=== PATIENT | male | born 1955 | race Caucasian/White ===

== ENCOUNTER → 2020-02-16 10:00 | Outpatient (BNVA) | payer BC, SELFPAY | PROVIDERS: Family Provider Nurse Practitioner Family; PCP Nurse Practitioner Family; Visit Provider Nurse Practitioner Family | DX: Z03.818 Encounter for observation for suspected exposure to other biological agents ruled out (principal); Z11.59 Encounter for screening for other viral diseases; Z20.828 Contact with and (suspected) exposure to other viral communicable diseases | CPT/HCPCS: 87635 ==

== ENCOUNTER → 2020-02-23 11:06 | Outpatient (BNVA) | payer BC, SELFPAY | PROVIDERS: Family Provider Nurse Practitioner Family; PCP Nurse Practitioner Family; Visit Provider Nurse Practitioner Family | DX: E78.5 Hyperlipidemia, unspecified (principal); I10 Essential (primary) hypertension; E78.00 Pure hypercholesterolemia, unspecified; K21.9 Gastro-esophageal reflux disease without esophagitis; R60.0 Localized edema; Z76.0 Encounter for issue of repeat prescription | CPT/HCPCS: 80053; 80061 ==

== ENCOUNTER 2020-02-26 14:23 | Emergency (ER) | payer BC, SELFPAY ==
[2020-02-26 14:34] VITALS: BP 123/86; PULSE 78; RESP 18; TEMP 36.9; O2SAT 98; BMI 39.9
--- NOTE | 2020-02-26 14:42 | ECG_ITS ---
Measurements Intervals [place] Rate: 79 P: 45 W[place]: 156 QRS: -26 QRSD: 98 T: 0 QT: 380 QTc: 437 SINUS RHYTHM BORDERLINE LEFT AXIS DEVIATION [QRS AXIS < -20] MINIMAL VOLTAGE CRITERIA FOR LVH, CONSIDER NORMAL VARIANT [MEETS CRITERIA IN ONE OF: R(aVL), S(V1), R(V5), R(V5/V6)+S(V1)] No previous ECG available for comparison Electronically Signed On 02-27-2020 14:58:03 CDT by Jose Pearson M.D. [email or web address]
--- NOTE | 2020-02-26 14:49 | CT_ITS ---
WS: [id number] CT HEAD NONCONTRAST HISTORY: Headache and dizziness TECHNIQUE: Contiguous axial imaging performed through the brain in 2.5 mm imaging. Bone and soft tiss ue windows. Sagittal and coronal reformats reviewed. All CT scans at [facility] use at ast one of these dose optimization techniques: automated exposure control; mA and/or kV adjustment pe r patient size (includes targeted exams where dose is matched to clinical indication); or iterative r econstruction. DLP: 776.12 mGy.cm COMPARISON: None available. No acute intracranial hemorrhage, midline shift or mass effect. No atrophy or prior infarcts or herniation. Ventricles: Normal size with no hydrocephalus. No inferior displacement of cerebellar tonsils. Clivus and pituitary gland are normal. Paranasal sinuses: As visualized are clear. Mastoid air cells: Well pneumatized. Calvarium and scalp: Skull is intact with no soft tissue edema or swelling. CT/CT head wo con* [id number] IMPRESSION: Negative head CT.
--- NOTE | 2020-02-26 15:00 | ED_ITS ---
HPI - Dizziness General: Chief Complaint: Dizziness Stated Complaint: dizzy Time Seen by Provider: 02/26/20 14:42 Source: patient Mode of arrival: ambulatory Limitations: no limitations History of Present Illness: HPI Narrative: Patient comes in today for complaints of dizziness. Patient states that he became dizzy when he was just setting in his chair at home. Patient reports that the dizziness is exacerbated with movement of his head. Patient reports that he had a headache earlier today but with Excedrin the headache is gone. Patient appears well. Patient appears in no pain. MD elicited complaint: vertigo Review of Systems General: Reports: 10 or more systems reviewed and unremarkable except in HPI and below Neuro: Reports: dizziness PFSH ED PFSH: Medical History (Updated 02/26/20 @ 16:43 by EMILY Torre) Hyperlipidemia Social History Smoking and tobacco status: never smoked Physical Exam Const: COMMON NORMALS: no acute distress and patient oriented x3 GENERAL APPEARANCE: cooperative HENMT: COMMON NORMALS: normocephalic, TM's normal bilaterally and Normal external nose present HEAD & SCALP: normal to inspection and normocephalic NOSE: Normal external nose present TYMPANIC MEMBRANE: TM's normal bilaterally MOUTH: Normal oral and palatal mucosa present THROAT: posterior oropharynx normal Eye: GENERAL EYE: appearance normal, both eyes and all related structures Neck/C-Spine: COMMON NORMALS: full ROM Lymph: LYMPHATIC: no lymphadenopathy noted Chest: COMMONS NORMALS: normal inspection of the chest Resp: COMMON NORMALS: normal respiratory effort EFFORT & INSPECTION: Yes able to speak in complete sentences Cardio: COMMON NORMALS: regular rate and regular rhythm RATE: regular rate RHYTHM: regular rhythm GI: COMMON NORMALS: non-tender Back/Pelvis: COMMON NORMALS: thoracic and lumbar spine normal to inspection Extremity: COMMON NORMALS: normal to inspection Neuro: COMMON NORMALS: patient oriented x3 and moves all extremities Psych: COMMON NORMALS: mental status grossly normal and cooperative Skin: COMMON NORMALS: no rashes or lesions noted GENERAL SKIN EXAM: no rashes or lesions noted Course Vital Signs: Vital signs: Vital Signs Temperature 98.5 F 02/26/20 14:34 Pulse Rate 84 02/26/20 17:02 Respiratory Rate 18 02/26/20 17:02 Blood Pressure 162/72 02/26/20 17:02 Pulse Oximetry 98 02/26/20 17:02 MDM - Dizziness MDM Narrative: Medical decision making narrative: Patient comes in today for complaints of dizziness with head movement. Patient appears well. Patient has no focal neural deficits. Respirations are even lungs are clear to auscultat ion. Bilateral tympanic membranes are intact. Vital signs are normal. Differential diagnosis includes brain mass or tumor, CVA, benign positional vertigo, vestibular neuronitis. Laboratory values were insignificant. EKG was sinus rhythm without any ectopy. Urinalysis was clean. CT scan of the head was normal. Reviewed exam with patient with recommendations for treatment and follow-up. Patient reported understanding agreed to plan or need to return to the ER for worsening symptoms. Lab Data: Labs: Lab Results 02/26/20 02/26/20 02/26/20 Range/Units 15:00 15:00 16:06 WBC 7.5 (4.0-10.0) 10^3/ uL RBC 4.53 (4.1-5.3) 10^6/u L Hgb 14.4 (11.7-16.6) g/dL Hct 42.2 (42.0-52.0) % MCV 93.2 (80-94) fL MCH 31.8 (28.0-34.0) pg MCHC 34.1 (30.0-36.0) g/dL RDW 13.0 (12.1-15.1) % Plt Count 240 (130-400) 10^3/c mm MPV 9.1 (7.4-10.4) fL Neut % (Auto) 57.5 % Lymph % (Auto) 31.9 % [place] % (Auto) 8.4 % Eos % (Auto) 1.3 % Baso % (Auto) 0.5 % Neut # (Auto) 4.3 (1.8-7.7) 10^3/u L Lymph # (Auto) 2.4 (0.8-4.8) 10^3/u L [place] # (Auto) 0.6 (0.2-0.9) 10^3/u L Eos # (Auto) 0.1 (0.0-0.8) 10^3/u L Baso # (Auto) 0.0 (0.0-0.1) 10^3/u L Nucleated RBC % (a uto) 0 % Nucleated RBCs # 0.0 /100WBC Sodium 138 (136-145) mmol/L Potassium 3.8 (3.5-5.1) mmol/L Chloride 103 (98-107) mmol/L Carbon Dioxide 25 (22-29) mmol/L Anion Gap 13.8 (5-19) BUN 18 (8-23) mg/dL Creatinine 0.6 L (0.7-1.2) mg/dL GFR Calculation 136.5 H (90-130) mL/min Glucose 100 (65-115) mg/dL Calculated Osmolal ity 283 L (285-295) mOsm/k g Calcium 9.0 (8.5-10.5) mg/dL Urine Color Yellow (Yellow) Urine Appearance Clear (CLEAR) Urine pH 6.5 (5-7) Ur Specific Gravit y 1.015 (1.005-1.030) Urine Protein Neg (Negative) Urine Glucose (UA) Norm (Normal) Urine Ketones Negative (Negative) Urine Blood Neg (Negative) Urine Nitrate Negative (Negative) Urine Bilirubin Neg (NEGATIVE) Urine Urobilinogen Neg (Negative) mg/dL Ur Leukocyte Gayathri ase Negative (Negative) EKG Data^: EKG 1: Attestation: I personally reviewed and interpreted this EKG as follows: (1530, sinus rhythm with a rate of 79 bpm and regular. Artifact is present. No obvious ST elevation. No ectopy is noted.) Discharge Plan Discharge Patient Disposition: Home, Self-Care Clinical Impression: Acute vestibular neuronitis Qualifiers: Laterality: unspecified laterality Qualified Code(s): H81.20 - Vestibular neuronitis, unspecified ear Condition: Stable Prescriptions: New meclizine 25 mg tablet 25 mg PO TID PRN (Reason: dizziness) Qty: 14 RF: 0 No Action furosemide [Lasix] 40 mg tablet 40 mg PO DAILY Qty: 90 RF: 1 lisinopril 20 mg tablet 20 mg PO DAILY Qty: 90 RF: 1 meloxicam 7.5 mg tablet 7.5 mg PO BID Qty: 180 RF: 1 omeprazole 20 mg capsule,delayed release(DR/EC) 20 mg PO DAILY Qty: 90 RF: 1 potassium chloride 10 mEq capsule, extended release 10 meq PO DAILY Qty: 90 RF: 1 Multiple Vitamins Tablet 1 tab PO DAILY RF: 0 aspirin 325 mg Tablet 325 mg PO PRN RF: 0 Glucosamine 500 mg Tablet 500 mg PO BID RF: 0 Excedrin Migraine 250-250-65 mg Tablet 2 tab PO PRN RF: 0 Fish Oil 1 cap PO DAILY RF: 0 atorvastatin 20 mg tablet 20 mg PO DAILY RF: 0 Referrals: Bigg Celeste FNP [Primary Care Provider] - Discharge Diet: Usual diet Discharge Activity: Increase activity as tolerated Patient Instructions: Vertigo (ED) Activity Restrictions/Additional Instructions: Drink plenty of fluids. Continue routine medications as directed. Change positions slowly. Increase activity as tolerated. Use medication as directed. Return to the ER for worsening headache, persistent nausea and vomiting, or chest pain. Follow-up with primary care in 1 week. Discharge Date/Time: 02/26/20 17:08 Coding Level of Care Code ED Mixed Animal Veterinarian for Renetta Fwd Exam Comprehensive
[2020-02-26 15:06] LABS: Basophils % 0.5 %; Eosinophils # 0.1 10^3/uL (0.0-0.8); Eosinophils % 1.3 %; Hematocrit 42.2 % (42.0-52.0); Hemoglobin 14.4 g/dL (11.7-16.6); Lymphocytes # 2.4 10^3/uL (0.8-4.8); Lymphocytes % 31.9 %; Mean Corpuscular HGB Conc 34.1 g/dL (30.0-36.0); Mean Corpuscular Hemoglobin 31.8 pg (28.0-34.0); Mean Corpuscular Volume 93.2 fL (80-94); Mean Platelet Volume 9.1 fL (7.4-10.4); Monocytes # 0.6 10^3/uL (0.2-0.9); Monocytes % 8.4 %; Neutrophils # 4.3 10^3/uL (1.8-7.7); Neutrophils % 57.5 %; Nucleated Red Blood Cells % 0 %; Platelet Count 240 10^3/cmm (130-400); Red Blood Count 4.53 10^6/uL (4.1-5.3); White Blood Count 7.5 10^3/uL (4.0-10.0)
[2020-02-26 15:23] LABS: Anion Gap 13.8 (5-19); Blood Urea Nitrogen 18 mg/dL (8-23); Carbon Dioxide 25 mmol/L (22-29); Chloride 103 mmol/L (98-107); Glomerular Filtration Rate 136.5 mL/min (90-130); Glucose 100 mg/dL (65-115); Osmolality Calculated 283 mOsm/kg (285-295); Potassium 3.8 mmol/L (3.5-5.1); Sodium 138 mmol/L (136-145)
[2020-02-26] MEDS: meclizine 25 mg tablet PO (15:53)
[2020-02-26 16:04] VITALS: BP 119/80; BP 121/78; BP 128/81; PULSE 73; PULSE 74; PULSE 82
[2020-02-26 16:32] LABS: Add Urine Microscopic? NO
[2020-02-26 16:37] LABS: Bilirubin Urine Neg (NEGATIVE); Blood Urine Neg (Negative); Glucose Urine UA Norm (Normal); Ketones Urine Negative (Negative); Leukocyte Esterase Urine Negative (Negative); Nitrate Urine Negative (Negative); Protein Urine Neg (Negative); Specific Gravity, Urine 1.015 (1.005-1.030); Urine Appearance Clear (CLEAR); Urine Color Yellow (Yellow); Urobilinogen Urine Neg (Negative); pH Urine 6.5 (5-7)
[2020-02-26 17:02] VITALS: BP 162/72; PULSE 84; RESP 18; O2SAT 98
== END 2020-02-26 17:08 | disposition home or self-care (01) ==
PROVIDERS: Emergency Provider Nurse Practitioner Family; PCP Registered Nurse
DX: H81.20 Vestibular neuronitis, unspecified ear (principal); E78.5 Hyperlipidemia, unspecified
CPT/HCPCS: 12345; 36415; 70450; 80048; 81003; 85025; 93005; 99283; J8597

== ENCOUNTER → 2020-03-15 10:36 | Outpatient (BNVA) | payer BC, SELFPAY | PROVIDERS: PCP Registered Nurse; Visit Provider Specialist | DX: H83.09 Labyrinthitis, unspecified ear (principal) | CPT/HCPCS: 80053; 85007; 85027; 85651 ==

== ENCOUNTER 2020-06-08 13:18 | Outpatient (RCR) | payer BC, SELFPAY | END 2020-06-15 23:59 | disposition home or self-care (01) | LOC: SPT 13:18 | PROVIDERS: PCP Registered Nurse; Referring Provider Otolaryngology; Visit Provider Otolaryngology | DX: H81.10 Benign paroxysmal vertigo, unspecified ear (principal) | CPT/HCPCS: 95992; 97162 ==

== ENCOUNTER → 2020-07-07 10:58 | Outpatient (BNVA) | payer BC, SELFPAY | PROVIDERS: PCP Registered Nurse; Visit Provider Nurse Practitioner Family | DX: Z20.828 Contact with and (suspected) exposure to other viral communicable diseases (principal); R68.89 Other general symptoms and signs | CPT/HCPCS: 87400; 87635 ==

== ENCOUNTER → 2020-12-01 11:26 | Outpatient (BNVA) | payer BC, SELFPAY | PROVIDERS: PCP Registered Nurse; Visit Provider Nurse Practitioner Family | DX: M25.50 Pain in unspecified joint (principal); R63.5 Abnormal weight gain; R53.83 Other fatigue; Z51.81 Encounter for therapeutic drug level monitoring; E78.5 Hyperlipidemia, unspecified; I10 Essential (primary) hypertension; K21.9 Gastro-esophageal reflux disease without esophagitis; R60.9 Edema, unspecified; R60.0 Localized edema | CPT/HCPCS: 80053; 80061; 84443; 85025; 86038; 86140; 86431 ==

== ENCOUNTER 2021-03-07 08:10 | Outpatient (CLI) | payer BC, SELFPAY ==
[2021-03-07 08:15] VITALS: BMI 45.8
--- NOTE | 2021-03-07 08:16 | NMCV_ITS ---
NM mable perf SPECT r/s* [id number] Jung Malin Age: 65 Gender: M : 1955 Exam Date: 03/07/2021 08:16 Ordering Phys: Eugene Roach M.D ([email or web address]) Technologist: VALERIY Quevedo Exam Location: [facility] Indications: CHEST PAIN STRESS TEST Please see separate stress test [facility] for full findings IMAGE PROTOCOL Rest/Stress 1 Lexiscan Day Radiopharmaceutical Dose (mCi) Administration Site Administered by Rest: Tc-99m 10.9 IV VALERIY Quevedo Sestamibi Stress:Tc-99m 33.0 IV VALERIY Krause Sestamibi Rest: 07-Mar-2021 60 Discovery 630 Stress: 07-Mar-2021 30 Discovery 630 0.4mg Lexiscan. Images obtained in supine and prone position. SPECT RESULTS Technical Quality: Good Raw Data Analysis: Soft tissue attenuation Image Corrections: No attenuation or motion correction applied Summed Stress Score: 0 Summed Rest Score: 1 Summed Difference Score: 0 PERFUSION FINDINGS Homogenous radiotracer uptake throughout the myocardium.No evidence of ischemia is noted FUNCTIONAL RESULTS (calculated via Gated SPECT) Stress Image LV EF (%): 69 Stress EDV (mL):105 TID: 0.86 Stress ESV (mL):33 FUNCTIONAL FINDINGS: There is normal left ventricular systolic function. IMPRESSIONS 1. Normal myocardial perfusion imaging with no evidence of ischemia 2. LV systolic function is normal Eugene Roach MD (Electronically Signed) Final Date: 14 March 2021 13:20 S
[2021-03-07] MEDS: regadenoson 0.4 Mg/5 ml Syringe IVP (09:51)
[2021-03-07 10:16] VITALS: BP 138/65; PULSE 80
--- NOTE | 2021-03-07 12:45 | USCV_ITS ---
Jung Malin Age: 65 Gender: M : 1955 Exam Date: 03/07/2021 08:51 Ordering Phys: Eugene Roach M.D ([email or web address]) Technologist: [place] [facility] [place]: CHEST PAIN BP: 120 / 66 HR: 79 Rhythm: Sinus Technical Quality: Adequate MEASUREMENTS (Male / Female) Normal Values 2D ECHO LV Diastolic Diameter PLAX 3.7 cm 4.2 - 5.9 / 3.9 - 5.3 cm LV Systolic Diameter PLAX 2.3 cm IVS Diastolic Thickness 1.0 cm 0.6 - 1.0 / 0.6 - 0.9 cm IVS Systolic Thickness 1.3 cm LVPW Diastolic Thickness 1.0 cm 0.6 - 1.0 / 0.6 - 0.9 cm LVPW Systolic Thickness 1.3 cm LVOT Diameter 2.0 cm LV Ejection Fraction 2D Teich 68.3 % LV Ejection Fraction MOD 2C 65.3 % LV Ejection Fraction 2C AL 66.9 % LA Diameter 3.9 cm LA Width 4.5 cm LA Height 4.5 cm RA Width 3.9 cm RA Height 5.4 cm Aorta at Sinotubular Diameter 4.1 cm M-MODE LV Diastolic Diameter MM 5.6 cm 4.2 - 5.9 / 3.9 - 5.3 cm LV Systolic Diameter MM 3.4 cm LV Ejection Fraction MM Teich 69.5 % IVS Diastolic Thickness MM 1.1 cm 0.6 - 1.0 / 0.6 - 0.9 cm IVS Systolic Thickness MM 1.8 cm LVPW Diastolic Thickness MM 1.3 cm 0.6 - 1.0 / 0.6 - 0.9 cm LVPW Systolic Thickness MM 2.0 cm RV Diastolic Diameter MM 1.2 cm Aortic Annulus Diameter 3.8 cm LA Ao Ratio MM 1.0 MV E Point Septal Separation 1.5 cm DOPPLER AV Peak Velocity 119.0 cm/s LVOT Peak Velocity 99.0 cm/s AV Area Cont Eq vti 3.0 cm squared AV Area Cont Eq pk 2.7 cm squared MV Area PHT 5.0 cm squared Mitral E to A Ratio 0.7 MV E' Velocity 46.0 cm/s Mitral E to MV E' Ratio 11.7 Mitral E to LV E' Lateral Ratio 11.0 Mitral E to LV E' Septal Ratio 12.6 TR Peak Velocity 256.0 cm/s TR Peak Gradient 26.2 mmHg TV Peak E Velocity 72.0 cm/s Right Atrial Pressure 3.0 mmHg Pulmonary Artery Systolic Pressu 29.2 mmHg PV Peak Velocity 88.0 cm/s FINDINGS Left Ventricle Normal left ventricular size. LV systolic function is normal with EF of 55-60%. No regional wall motion abnormalities. Grade 1 diastolic dysfunction is noted Right Ventricle The right ventricle is normal in size and function. Right Atrium The right atrium is normal in size. Left Atrium The left atrium is normal in size. Mitral Valve Structurally normal mitral valve without significant stenosis or prolapse. There is no mitral regurgitation. Aortic Valve Structurally normal aortic valve without significant sclerosis or stenosis. There is no aortic regurgitation. Tricuspid Valve Structurally normal tricuspid valve without significant stenosis or regurgitation. Insufficient TR jet to calculate RVSP Pulmonic Valve Structurally normal pulmonic valve without significant stenosis. There is no pulmonic regurgitation. Pericardium Normal pericardium without effusion. Aorta Normal ascending aorta dimension. CONCLUSIONS LV systolic function is normal with EF of 55-60% Grade 1 diastolic dysfunction No significant valvular heart disease No comparison studies are available Eugene Roach MD (Electronically Signed) Final Date: 20 March 2021 15:15 S
== END 2021-03-07 08:11 | disposition home or self-care (01) ==
LOC: CDL 08:14
PROVIDERS: PCP Nurse Practitioner Family; Visit Provider Internal Medicine
DX: R07.9 Chest pain, unspecified (principal)
CPT/HCPCS: 78452; 93017; 93306; A9500; J2785

== ENCOUNTER 2021-04-07 16:37 | Outpatient (CLI) | payer BC, SELFPAY | END 2021-04-07 16:38 | disposition home or self-care (01) | PROVIDERS: PCP Nurse Practitioner Family; Visit Provider Nurse Practitioner Family | DX: N39.0 Urinary tract infection, site not specified (principal) | CPT/HCPCS: 81000; 87077; 87086; 87186 ==

== ENCOUNTER → 2021-04-17 11:48 | Outpatient (BNVA) | payer BC, SELFPAY | PROVIDERS: PCP Nurse Practitioner Family; Visit Provider Nurse Practitioner Family | DX: R31.9 Hematuria, unspecified (principal) | CPT/HCPCS: 87086 ==

== ENCOUNTER 2021-04-28 15:52 | Outpatient (CLI) | payer BC, SELFPAY ==
--- NOTE | 2021-04-28 15:59 | XRR_ITS ---
PROCEDURE INFORMATION: Exam: XR Left Knee Exam date and time: 04/28/2021 3:59 PM Age: 65 years old Clinical indication: Pain; Knee; Left; Additional info: M25.562 - pain in left knee TECHNIQUE: Imaging protocol: XR Left knee. Views: 3 views. COMPARISON: No relevant prior studies available. FINDINGS: Bones/joints: Normal. Soft tissues: Normal. XR/XR knee LT 3V* [id number] IMPRESSION: No acute findings.
[2021-04-28 16:51] LABS: Uric Acid 6.7 mg/dL (3.4-7.0)
== END 2021-04-28 15:53 | disposition home or self-care (01) ==
LOC: RAD 15:57
PROVIDERS: PCP Nurse Practitioner Family; Visit Provider Nurse Practitioner Family
DX: M25.562 Pain in left knee (principal)
CPT/HCPCS: 36415; 73562; 84550

== ENCOUNTER → 2022-02-28 10:27 | Outpatient (BNVA) | payer BC, SELFPAY | PROVIDERS: Visit Provider Family Medicine | DX: E78.2 Mixed hyperlipidemia (principal); I10 Essential (primary) hypertension; K21.9 Gastro-esophageal reflux disease without esophagitis; M25.562 Pain in left knee; M77.11 Lateral epicondylitis, right elbow; R60.0 Localized edema | CPT/HCPCS: 80053; 80061; 84153; 84443; 85025 ==

== ENCOUNTER 2023-01-31 08:32 | Outpatient (CLI) | payer BC, SELFPAY ==
[2023-01-31 09:49] LABS: Basophils % 0.4 %; Eosinophils # 0.2 10^3/uL (0.0-0.8); Eosinophils % 2.5 %; Hematocrit 45.6 % (42.0-52.0); Hemoglobin 15.2 g/dL (11.7-16.6); Lymphocytes # 2.2 10^3/uL (0.8-4.8); Lymphocytes % 32.9 %; Mean Corpuscular HGB Conc 33.3 g/dL (30.0-36.0); Mean Corpuscular Hemoglobin 30.6 pg (28.0-34.0); Mean Corpuscular Volume 91.8 fl (80-94); Mean Platelet Volume 9.2 fL (7.4-10.4); Monocytes # 0.5 10^3/uL (0.2-0.9); Monocytes % 7.7 %; Neutrophils # 3.75 10^3/uL (1.8-7.7); Neutrophils % 55.9 %; Nucleated Red Blood Cells % 0 %; Platelet Count 244 10^3/cmm (130-400); Red Blood Count 4.97 10^6/uL (4.1-5.3); White Blood Count 6.7 10^3/uL (4.0-10.0)
[2023-01-31 10:20] LABS: Alanine Aminotransferase 18 U/L (0-41); Albumin Level 4.1 g/dL (3.5-5.2); Alkaline Phosphatase 69 U/L (40-130); Aspartate Amino Transferase 19 U/L (0-40); Blood Urea Nitrogen 11 mg/dL (8-23); Calcium 9.4 mg/dL (8.5-10.5); Carbon Dioxide 25 mmol/L (22-29); Chloride 102 mmol/L (98-107); Chol HDL Ratio 3.21 mg/dL (1.0-5.00); Cholesterol 135 mg/dL (0-200); Globulin 2.7 g/dL (1.3-4.6); Glomerular Filtration Rate 135.2 mL/min (90-130); Glucose 115 mg/dL (65-115); HDL Cholesterol 42 mg/dL (60-100); LDL Cholesterol Calculated 62 mg/dL (50-129); LDL HDL Ratio 1.48 RATIO (0.00-3.22); Osmolality Calculated 288 mOsm/kg (285-295); Prostate Specific Antigen Scr 0.11 ng/mL (0-4); Sodium 139 mmol/L (136-145); Total Bilirubin 0.3 mg/dL (0.15-1.2); Total Protein 6.8 g/dL (6.6-8.7); Triglycerides 156 mg/dL (0-150)
[2023-01-31 10:24] LABS: Anion Gap 15.6 (5-19); Potassium 3.6 mmol/L (3.5-5.1)
[2023-01-31 10:39] LABS: Estmated Average Glucose 117; Hemoglobin A1C 5.7 % (4.0-6.0)
== END 2023-01-31 08:33 | disposition home or self-care (01) ==
PROVIDERS: PCP Family Medicine; Visit Provider Family Medicine
DX: E78.2 Mixed hyperlipidemia (principal); I10 Essential (primary) hypertension
CPT/HCPCS: 80053; 80061; 83036; 84443; 85025; G0103

== ENCOUNTER 2023-08-21 07:33 | Day surgery (SDC) | payer BC, SELFPAY ==
[2023-08-21 07:58] VITALS: BP 139/94; PULSE 97; RESP 18; TEMP 36.9; O2SAT 93; BMI 41.3
[2023-08-21 08:11] LABS: Glucose Point of Care 111 mg/dL (70-110)
[2023-08-21] MEDS: sodium chloride 0.9% 1,000 ML 30 ML IV (08:11)
--- NOTE | 2023-08-21 09:00 | ANES.PREANE2 ---
Pre-Anesthetic Assessment Height/Weight: Height 1.75 m Weight 127.006 kg Temp Pulse Resp BP Pulse Ox O2 Del Method 98.4 F 97 18 139/94 93 Room Air 08/21/23 07:58 08/21/23 07:58 08/21/23 07:58 08/21/23 07:58 08/21/23 07:58 08/21/23 07:58 Preop Diagnosis: GERD/Screening colonoscopy Operation Date: 08/21/23 08:45 Proposed Procedures p [id number] egd [id number] colon G0121 screen colon A risk z12.11,K21.9(Not Applicable) - Garcia Ayala DO s Colonoscopy(Not Applicable) - Garcia Ayala DO Familial anesthetic complications: None Was Beta Kaye taken within 24 hours: N/A Was Clonidine taken within 24 hours: N/A Last intake: Intake Last Liquid Date 08/20/23 Last Liquid Time 22:00 Last Solid Date 08/19/23 Last Solid Time 08:00 Social No alcohol and No tobacco Exam alert, oriented x 3, clear to auscultation bilaterally and regular rate & rhythm Airway Submandibular: within normal limits Cervical ROM: within normal limits Mallampati: Class III Dentition: chipped and loose Comments: Comments: Bridge thats coming apart per patient History/ROS No significant history except as noted and No significant complaints Pulmonary Exertional Dyspnea CV/HEM Hypertension None reported Hepatic None reported GI Gastroesophageal Reflux Disease Metabolic Diabetes Mellitus, Hyperlipidemia and Morbid Obesity Musc/sk Osteoarthritis/DJD Neuropsych Neuropathy Anesthetic Plan ASA status: 3 Anesthesia: Anesthesia Evaluation, General and MAC Risk of > 500 ml blood loss (7ml/kg in children): No Medications/Allergies Home Medications Medication Instructions Recorded Confirmed Last Taken Type aspirin 325 mg tablet 325 mg PO PRN headache 02/26/20 08/20/23 Unknown History glucosamine sulfate 500 mg tablet 500 mg PO BID 02/26/20 08/21/23 08/20/23 History (Glucosamine) multivitamin (Multiple Vitamins 1 tab PO DAILY 02/26/20 08/21/23 08/20/23 History tablet) amlodipine 10 mg tablet 10 mg PO DAILY #90 tabs 11/20/22 08/21/23 08/21/23 Rx lisinopril 40 mg tablet 40 mg PO DAILY #90 tabs 11/20/22 08/21/23 08/19/23 Rx pantoprazole 40 mg tablet,delayed 40 mg PO BID 6 weeks #84 tabs 07/18/23 08/21/23 Unknown Rx release (Protonix) atorvastatin 20 mg tablet 20 mg PO DAILY 08/20/23 08/21/23 08/19/23 History furosemide 20 mg tablet 20 mg PO BEDTIME 08/20/23 08/20/23 08/19/23 History furosemide 40 mg tablet 40 mg PO DAILY 08/20/23 08/21/23 08/20/23 History omeprazole 20 mg capsule,delayed 20 mg PO DAILY 08/20/23 08/21/23 08/20/23 History release potassium chloride 10 mEq 10 meq PO DAILY 08/20/23 08/20/23 08/19/23 History tablet,extended release Allergies Allergy/AdvReac Type Severity Reaction Status Date / Time No Known Allergies Allergy Verified 08/14/23 10:04 Current Medications Generic Name Dose Route Start Last Admin Trade Name Freq PRN Reason Stop Dose Admin Sodium Chloride 1,000 mls @ 30 mls/hr 08/21/23 08:00 08/21/23 08:11 Sodium Chloride 0.9% IV 08/22/23 07:59 30 mls/hr .Q24H MORENA Administration PFSH Anesthesia Medical History (Updated 08/13/23 @ 09:34 by Vince Mckeon DO) URI with cough and congestion Sorethroat Hypertension Hyperlipidemia Surgical History (Updated 07/18/23 @ 11:10 by Garcia Ayala DO) Hx of colonoscopy 2007 History of mandibular surgery Hx of right knee surgery Social History Smoking and tobacco/nicotine status: never used tobacco/nicotine Alcohol intake: never Substance/Drug Use: never Data Anesthesia Cardiac Studies: Echocardiogram Ultrasound 03/07/21
--- NOTE | 2023-08-21 09:49 | PM.HP ---
Providers/Chief Complaint Primary Care Provider: Vince Mckeon DO Chief Complaint: Z12.11, K21.9 History of Present Illness Jung Malin is a 67 year old male Review of Systems General: Reports: 10 or more systems reviewed and unremarkable except in HPI and below Medications/Allergies Home Medications Medication Instructions Recorded Confirmed Last Taken Type aspirin 325 mg tablet 325 mg PO PRN headache 02/26/20 08/20/23 Unknown History glucosamine sulfate 500 mg tablet 500 mg PO BID 02/26/20 08/21/23 08/20/23 History (Glucosamine) multivitamin (Multiple Vitamins 1 tab PO DAILY 02/26/20 08/21/23 08/20/23 History tablet) amlodipine 10 mg tablet 10 mg PO DAILY #90 tabs 11/20/22 08/21/23 08/21/23 Rx lisinopril 40 mg tablet 40 mg PO DAILY #90 tabs 11/20/22 08/21/23 08/19/23 Rx pantoprazole 40 mg tablet,delayed 40 mg PO BID 6 weeks #84 tabs 07/18/23 08/21/23 Unknown Rx release (Protonix) atorvastatin 20 mg tablet 20 mg PO DAILY 08/20/23 08/21/23 08/19/23 History furosemide 20 mg tablet 20 mg PO BEDTIME 08/20/23 08/20/23 08/19/23 History furosemide 40 mg tablet 40 mg PO DAILY 08/20/23 08/21/23 08/20/23 History omeprazole 20 mg capsule,delayed 20 mg PO DAILY 08/20/23 08/21/23 08/20/23 History release potassium chloride 10 mEq 10 meq PO DAILY 08/20/23 08/20/23 08/19/23 History tablet,extended release Allergies Allergy/AdvReac Type Severity Reaction Status Date / Time No Known Allergies Allergy Verified 08/14/23 10:04 PFSH Acute PFSH: Medical History (Updated 08/13/23 @ 09:34 by Vince Mckeon DO) URI with cough and congestion Sorethroat Hypertension Hyperlipidemia Surgical History (Updated 07/18/23 @ 11:10 by Garcia Ayala DO) Hx of colonoscopy 2007 History of mandibular surgery Hx of right knee surgery Social History Smoking and tobacco/nicotine status: never used tobacco/nicotine Alcohol intake: never Substance/Drug Use: never Vitals/I&O/Wt Last Vital Signs Temp 98.4 F 08/21/23 07:58 Pulse 97 08/21/23 07:58 Resp 18 08/21/23 07:58 BP 139/94 08/21/23 07:58 Pulse Ox 93 08/21/23 07:58 O2 Del Method Room Air 08/21/23 07:58 Weight last 48 hrs Weight 280 lb A&P Assessment and plan (1) GERD (gastroesophageal reflux disease): (2) Screening for malignant neoplasm of colon: Plan EGD and colonoscopy Attestations Medical Necessity Statement*: Home Coding Level of Care Code Acute Code for Chg Fwd Diagnoses GERD (gastroesophageal reflux disease) K21.9 Screening for malignant neoplasm of colon Z12.11
--- NOTE | 2023-08-21 10:24 | PC.NURSE ---
1005 NEW IV PLACED BY JAKUB ARIAS. 20G LEFT HAND
[2023-08-21 10:25] VITALS: BP 121/71; PULSE 96; RESP 18; TEMP 36.6; O2SAT 94
[2023-08-21 10:39] VITALS: BP 110/73; PULSE 88; RESP 16; O2SAT 95
--- NOTE | 2023-08-21 15:55 | ANE.PACU2 ---
Inpatient post-anesthesia follow up: Airway intact: Yes Vital signs: Temperature 97.8 F Pulse Rate 88 Respiratory Rate 16 Blood Pressure 110/73 Pulse Oximetry 95 Oxygen Delivery Me thod Room Air Oxygen Flow Rate Fraction of Inspir ed Oxygen Hydration adequate: Yes Nausea and vomiting: No Pain level: 2 Mental status: Baseline
== END 2023-08-21 10:55 | disposition home or self-care (01) ==
PROVIDERS: PCP Family Medicine; Visit Provider Surgery
PROC: 0DJ08ZZ Inspection of Upper Intestinal Tract, Via Natural or Artificial Opening Endoscopic (ICD-10-PCS; CPT 43235; principal; 2023-08-21 08:45)
PROC: 0DJD8ZZ Inspection of Lower Intestinal Tract, Via Natural or Artificial Opening Endoscopic (ICD-10-PCS; CPT 45378; 2023-08-21 08:45)
DX: Z12.11 Encounter for screening for malignant neoplasm of colon (principal); K57.30 Diverticulosis of large intestine without perforation or abscess without bleeding; K29.50 Unspecified chronic gastritis without bleeding; D12.3 Benign neoplasm of transverse colon; K21.9 Gastro-esophageal reflux disease without esophagitis; E11.40 Type 2 diabetes mellitus with diabetic neuropathy, unspecified; Z79.82 Long term (current) use of aspirin; I10 Essential (primary) hypertension; E78.5 Hyperlipidemia, unspecified; E66.01 Morbid (severe) obesity due to excess calories; Z68.41 Body mass index [BMI] 40.0-44.9, adult
CPT/HCPCS: 36416; 43239; 45385; 82962; 88305; 88342; J2704; J7030

== ENCOUNTER 2023-10-14 09:15 | Emergency (ER) | payer BC, SELFPAY ==
--- NOTE | 2023-10-14 10:06 | XRR_ITS ---
PROCEDURE INFORMATION: Exam: XR Left Elbow Exam date and time: 10/14/2023 10:11 AM Age: 67 years old Clinical indication: Pain; Elbow; Left TECHNIQUE: Imaging protocol: Radiologic exam of the left elbow. Views: 3 or more views. COMPARISON: No relevant prior studies available. FINDINGS: Bones/joints: Normal. Soft tissues: Normal. XR/XR elbow LT min 3V* [id number] IMPRESSION: No acute findings.
[2023-10-14 10:16] VITALS: BP 135/77; PULSE 76; RESP 18; TEMP 36.8; O2SAT 94
--- NOTE | 2023-10-14 11:46 | W.ED.EXTPRO ---
HPI - Extremity Problem General: Chief complaint: Extremity Problem,Nontraumatic Stated complaint: Left arm and elbow pain Time Seen by Provider: 10/14/23 11:39 Source: patient Mode of arrival: ambulatory Limitations: no limitations History of Present Illness: 67-year-old male states he is a portion mattress last night and felt a pop in his left arm about the elbow he states that he felt like his bicep that popped he states he has had pain since then especially trying to straighten his arm. Rates pain a 4-10 it is improved with rest denies any other injuries. Associated symptoms: Deny chest pain, fever(s) or rash Review of Systems Const: Denies: fever(s), chills, body aches or change in appetite ENMT: Denies: throat pain or dental pain Card: Denies: chest pain Resp: Denies: dyspnea GI: Denies: abdominal pain, nausea, vomiting or diarrhea Musc: Reports: extremity pain; Denies: neck pain or back pain Skin/Breast: Denies: rash Neuro: Denies: headache(s) PFSH ED PFSH: Medical History URI with cough and congestion Sorethroat Hypertension Hyperlipidemia Surgical History History of esophagogastroduodenoscopy (EGD) History of colonoscopy with polypectomy Hx of colonoscopy 2007 History of mandibular surgery Hx of right knee surgery Social History Smoking and tobacco/nicotine status: never used tobacco/nicotine Alcohol intake: never Substance/Drug Use: never Physical Exam Const: COMMON NORMALS: no acute distress, patient oriented x3 and healthy appearing HENMT: COMMON NORMALS: normocephalic and atraumatic HEAD & SCALP: normocephalic and atraumatic Neck/C-Spine: COMMON NORMALS: full ROM and supple Chest: COMMONS NORMALS: normal inspection of the chest Resp: COMMON NORMALS: normal respiratory effort Extremity: NARRATIVE EXTREMITY EXAM: Tenderness along left bicep does have pain with extension no obvious deformity Neuro: COMMON NORMALS: patient oriented x3, moves all extremities and no focal motor deficits Psych: COMMON NORMALS: mental status grossly normal, Normal thought process present and cooperative THOUGHT PROCESS: Normal thought process present Skin: COMMON NORMALS: no rashes or lesions noted and no wounds GENERAL SKIN EXAM: no rashes or lesions noted Course Vital Signs: Vital signs: Vital Signs Temperature 98.3 F 10/14/23 10:16 Pulse Rate 76 10/14/23 10:16 Respiratory Rate 18 10/14/23 10:16 Blood Pressure 135/77 10/14/23 10:16 Pulse Oximetry 94 10/14/23 10:16 Oxygen Delivery Me thod Room Air 10/14/23 10:16 MDM - Extremity (Nontraumatic) Medical Decision Making Patient presents here with left arm injury could be a biceps tendon injury we will place him in a sling he has no signs of fracture we will get him follow-up with orthopedics he is return if worsening. Medical Records I reviewed the patient's medical records. Lab Data Radiology Impressions Elbow X-Ray 10/14/23 10:06 IMPRESSION: No acute findings. No radiology studies performed this visit Discharge Plan Discharge Patient Disposition: Home Clinical Impression: Injury of elbow, left Qualifiers: Encounter type: initial encounter Qualified Code(s): S59.902A - Unspecified injury of left elbow, initial encounter Condition: Stable Prescriptions: New Naprosyn 500 mg tablet 500 mg PO BID PRN (Reason: pain) Qty: 20 0RF No Action pantoprazole [Protonix] 40 mg tablet,delayed release (DR/EC) 40 mg PO BID 42 Days Qty: 84 0RF amlodipine 10 mg tablet 10 mg PO DAILY Qty: 90 3RF lisinopril 40 mg tablet 40 mg PO DAILY Qty: 90 3RF multivitamin [Multiple Vitamins] Tablet 1 tab PO DAILY aspirin 325 mg Tablet 325 mg PO PRN Hold Instructions: Resume on 08/23/23. glucosamine sulfate [Glucosamine] 500 mg Tablet 500 mg PO BID atorvastatin 20 mg tablet 20 mg PO DAILY Rx Instructions: TAKE 1 TABLET BY MOUTH DAILY furosemide 40 mg tablet 40 mg PO DAILY Rx Instructions: TAKE 1 TABLET BY MOUTH EVERY DAY IN THE MORNING potassium chloride 10 mEq tablet extended release 10 meq PO DAILY Rx Instructions: TAKE 1 TABLET BY MOUTH EVERY DAY, Dr. Mckeon furosemide 20 mg tablet 20 mg PO BEDTIME Rx Instructions: TAKE 1 TABLET BY MOUTH DAILY IN THE EVENING Discharge Orders: Discharge ED (Routine); Ordered 10/14/23 Ordered By: Kamron Escobar Referrals: Vince Mckeon DO [Primary Care Provider] - 1-3 days Tristen Hess DO [Physician] - 1-3 days Discharge Diet: Advance as tolerated Discharge Activity: Resume usual activity Patient Instructions: Elbow Sprain (ED) Coding Level of Care Code ED Color Sprayer for Renetta Saucedo
[2023-10-14] MEDS: naproxen 500 mg Tablet PO (11:54)
--- NOTE | 2023-10-16 08:17 | DCPLANNER ---
Message sent to Orthopedics for a follow up appointment on L elbow injury
== END 2023-10-14 12:18 | disposition home or self-care (01) ==
PROVIDERS: Emergency Provider Emergency Medicine; PCP Family Medicine
DX: S59.902A Unspecified injury of left elbow, initial encounter (principal); I10 Essential (primary) hypertension; E78.5 Hyperlipidemia, unspecified; X58.XXXA Exposure to other specified factors, initial encounter
CPT/HCPCS: 73080; 99283

== ENCOUNTER → 2023-11-05 10:59 | Outpatient (BNVA) | payer BC, SELFPAY | PROVIDERS: PCP Family Medicine; Referring Provider Emergency Medicine; Visit Provider Orthopaedic Surgery | DX: S46.212A Strain of muscle, fascia and tendon of other parts of biceps, left arm, initial encounter (principal); X58.XXXA Exposure to other specified factors, initial encounter | CPT/HCPCS: 73070 ==

== ENCOUNTER 2023-11-06 13:58 | Outpatient (CLI) | payer BC, SELFPAY ==
--- NOTE | 2023-11-06 14:30 | MR_ITS ---
WS: [id number] MRI LEFT ELBOW WITHOUT CONTRAST. COMPARISON: Radiograph 11/05/2023 Multiplanar, multisequence imaging is performed without contrast. Abnormal signal in the distal biceps tendon. Short and long heads of the biceps tendons are difficult to distinguish separately at their insertion site. There is a complete tear involving the insertion of the biceps tendon to the radial tuberosity. There is a small fluid gap at the radial tuberosity. T he tendon is not significantly retracted. There is additional tendinopathy in the distal 2 to 3 cm of the tendon with surrounding fluid. Abnormal signal also in the brachialis tendon at its insertion to the coronoid. Seen best on the curr ent axial T2 fat-saturated sequence is fluid in the central portion of the brachialis tendon at its i nsertion site. There is no full-thickness tear. There is additional mild tendinopathy. There is additional fluid noted in the central common extensor tendon consistent with a partial tear. There is no edema at this level. There is a small amount of edema in the anterior elbow at the site of the tendon tears. No marrow edema. No significant joint effusion. The triceps tendon attachment is normal. IMPRESSION: 1. Full-thickness tear involving the biceps tendon attachment to the radial tuberosity but there is no significant retraction. Additional mild tendinopathy in the distal biceps tendon. 2. Additional small tear in the brachialis tendon at its insertion to the coronoid process. No retra ction. 3. Additional fluid in the central common extensor tendon at the lateral epicondyle. Consistent with a partial tear. There is no surrounding edema. This may be from an old injury.
== END 2023-11-06 13:59 | disposition home or self-care (01) ==
PROVIDERS: PCP Family Medicine; Visit Provider Orthopaedic Surgery
DX: S46.212A Strain of muscle, fascia and tendon of other parts of biceps, left arm, initial encounter (principal); X58.XXXA Exposure to other specified factors, initial encounter
CPT/HCPCS: 73221

== ENCOUNTER → 2023-12-10 08:27 | Outpatient (BNVA) | payer BC, SELFPAY | PROVIDERS: PCP Family Medicine; Visit Provider Orthopaedic Surgery | DX: S46.212A Strain of muscle, fascia and tendon of other parts of biceps, left arm, initial encounter (principal); X58.XXXA Exposure to other specified factors, initial encounter; M25.522 Pain in left elbow | CPT/HCPCS: 36415; 73080; 80053; 81003; 83036; 85025 ==

== ENCOUNTER 2023-12-13 08:10 | Day surgery (SDC) | payer BC, SELFPAY ==
[2023-12-13] VITALS (20 sets, daily range): BP systolic 106–147; BP diastolic 72–84; PULSE 71–85; RESP 16–18; TEMP 36.3–36.6; O2SAT 91–97; BMI 41.6
--- NOTE | 2023-12-13 08:00 | XR_ITS ---
WS: [id number] Examination: XR elbow LT 2V [id number] Reason for Exam: SURGERY Date: December 13, 2023 Comparison: None. Findings: 2 intraoperative images were obtained with 13.7 seconds of fluoroscopy. The dap is 0.0098 mGy/sq cm. Impression: Intraoperative images demonstrate surgical changes at the proximal radius. Please see intraoperative note for full explanation of the findings and procedure.
[2023-12-13 08:51] LABS: Glucose Point of Care 98 mg/dL (70-110)
[2023-12-13] MEDS: sodium chloride 0.9% 1,000 ML 30 ML IV (09:00)
--- NOTE | 2023-12-13 09:17 | ANES.PREANE2 ---
Pre-Anesthetic Assessment Height/Weight: Height 1.75 m Weight 127.913 kg Temp Pulse Resp BP Pulse Ox O2 Del Method 97.9 F 71 18 106/79 97 Room Air 12/13/23 08:27 12/13/23 08:27 12/13/23 08:27 12/13/23 08:27 12/13/23 08:27 12/13/23 08:27 Preop Diagnosis: Bicep tendon rupture on the left Operation Date: 12/13/23 09:40 Proposed Procedures p Bicep Tenodesis Tendon Repair Bicep/biceps or triceps distal tendon repair/reinsertion(Left) - Tristen Hess, DO Familial anesthetic complications: NOne Was Beta Kaye taken within 24 hours: N/A Was Clonidine taken within 24 hours: N/A Last intake: Intake Last Liquid Date 12/13/23 Last Liquid Time 06:00 Last Solid Date 12/12/23 Last Solid Time 16:00 Social No alcohol and No tobacco Exam alert, oriented x 3, clear to auscultation bilaterally and regular rate & rhythm Airway Mallampati: Class II Dentition: chipped and other (fragile bridge) CV/HEM Hypertension GI Gastroesophageal Reflux Disease and Hiatal Hernia gerd Metabolic Diabetes Mellitus and Morbid Obesity Anesthetic Plan ASA status: 3 Anesthesia: Choice Risk of > 500 ml blood loss (7ml/kg in children): No Medications/Allergies Home Medications Medication Instructions Recorded Confirmed Last Taken Type glucosamine sulfate 500 mg tablet 500 mg PO BID 02/26/20 12/12/23 12/12/23 History (Glucosamine) multivitamin (Multiple Vitamins 1 tab PO DAILY 02/26/20 12/12/23 12/12/23 History tablet) lisinopril 40 mg tablet 40 mg PO DAILY #90 tabs 11/20/22 12/12/23 12/12/23 Rx naproxen 500 mg tablet (Naprosyn) 500 mg PO BID PRN pain #20 tabs 10/14/23 12/13/23 12/12/23 Rx amlodipine 10 mg tablet 10 mg PO DAILY #90 tabs 11/15/23 12/12/23 12/13/23 Rx atorvastatin 20 mg tablet 20 mg PO DAILY #90 tabs 12/11/23 12/12/23 12/12/23 Rx furosemide 20 mg tablet 20 mg PO BEDTIME #90 tabs 03/12/12/23 12/12/23 Rx omeprazole 20 mg capsule,delayed 20 mg PO DAILY 12/12/23 12/12/23 12/13/23 History release furosemide 40 mg tablet 40 mg PO DAILY #90 tabs 12/13/23 Unknown Rx potassium chloride 10 mEq 10 meq PO DAILY 12/13/23 Unknown History tablet,extended release Allergies Allergy/AdvReac Type Severity Reaction Status Date / Time No Known Allergies Allergy Verified 12/13/23 08:20 Current Medications Generic Name Dose Route Start Last Admin Trade Name Freq PRN Reason Stop Dose Admin Sodium Chloride 1,000 mls @ 30 mls/hr 12/13/23 08:15 12/13/23 09:00 Sodium Chloride 0.9% IV 12/14/23 08:14 30 mls/hr .Q24H MORENA Administration PFSH Anesthesia Medical History URI with cough and congestion Sorethroat Hypertension Hyperlipidemia Surgical History History of esophagogastroduodenoscopy (EGD) History of colonoscopy with polypectomy Hx of colonoscopy 2007 History of mandibular surgery Hx of right knee surgery Social History Smoking and tobacco/nicotine status: never used tobacco/nicotine Alcohol intake: never Substance/Drug Use: never Data Anesthesia Cardiac Studies: Echocardiogram Ultrasound 03/07/21
--- NOTE | 2023-12-13 09:57 | W.PM.OPSUD ---
Surgery/Procedure H&P Update DATE OF PROCEDURE: December 13, 2023 DATE H&P PERFORMED: 12/10/23 H&P UPDATE INFORMATION: I have reviewed H&P completed within last 30 days, I have examined patient prior to procedure and No changes to prior documentation PREOP DIAGNOSIS: Bicep tendon rupture on the left PLANNED PROCEDURE: Operation Date: 12/13/23 09:40 Proposed Procedures p Bicep Tenodesis Tendon Repair Bicep/biceps or triceps distal tendon repair/reinsertion(Left) - Tristen Hess DO
[2023-12-13] MEDS: ceFAZolin 2,000 MG in sodium chloride 0.9% (plus) 50 ML 100 MG IV (10:11)
[2023-12-13] MEDS: ceFAZolin 1,000 mg SDV 1000 MG IVP (10:11)
[2023-12-13] MEDS: fentaNYL 50 mcg/mL INJ 2mL IVP (12:00)
[2023-12-13] MEDS: morphine 4 mg/mL SDV 1 mL 2 MG IVP ×2 (12:08→12:20)
--- NOTE | 2023-12-13 12:09 | PM.OP ---
Operative Report Date of procedure: December 13, 2023 Pre-op diagnosis: Left distal bicep tear Post-op diagnosis: same Procedure done: Repair of distal bicep tendon Surgeon: Tristen Hess DO Estimated blood loss (mL): 20 Procedure: Repair of left distal bicep tendon Patient brought the operative suite after undergoing anesthesia placed in supine position. All areas impingement well-padded patient's prepped reamers were fashion. Skin incision made over the radius the blunt dissection was made down to the radial tuberosity. [employer]'s were used to identify the tuberosity. Bicep tendon was identified 1 stent was identified and a whipstitch was placed into the tendon. And then this was retracted and then the center of the radial tuberosity and supination was identified and a pin was placed. And then the near cortex was drilled with an 8 mm drill. And then the button was attached to the psychiatric arnp and whipstitched it was passed through the tendon was placed through the button. The button was placed on the contralateral border of the radius. And then the tendon was then inserted into the hole that was drilled by pulling the sutures [id number] and a miguel a method. Was intended was inserted then a interference screw was placed and then the biceps felt to be in good repair. Wounds were irrigated closed with Vicryl and mya. Sterile dressings were applied and patient was placed in a posterior splint and transferred to the PACU in stable condition.
[2023-12-13] MEDS: HYDROmorphone 1 mg/mL INJ 1 mL 0.5 MG IVP (12:29)
[2023-12-13] MEDS: ondansetron 2 mg/ML SDV 2 mL 4 MG IVP (12:39)
[2023-12-13] MEDS: HYDROcodone-acetaminophen 10-325 mg Tablet 1 TAB PO (13:05)
--- NOTE | 2023-12-13 14:15 | ANE.PACU2 ---
Inpatient post-anesthesia follow up: Airway intact: Yes Vital signs: Temperature 97.8 F Pulse Rate 80 Respiratory Rate 18 Blood Pressure 147/76 Pulse Oximetry 94 Oxygen Delivery Me thod Room Air Oxygen Flow Rate 10 Fraction of Inspir ed Oxygen Hydration adequate: Yes Nausea and vomiting: No Pain level: 1 Mental status: Baseline
== END 2023-12-13 14:15 | disposition home or self-care (01) ==
PROVIDERS: PCP Family Medicine; Visit Provider Orthopaedic Surgery
PROC: (CPT 23430; principal; 2023-12-13 09:30)
DX: S46.212A Strain of muscle, fascia and tendon of other parts of biceps, left arm, initial encounter (principal); X58.XXXA Exposure to other specified factors, initial encounter; I10 Essential (primary) hypertension; K21.9 Gastro-esophageal reflux disease without esophagitis; E11.9 Type 2 diabetes mellitus without complications; E66.01 Morbid (severe) obesity due to excess calories; Z68.41 Body mass index [BMI] 40.0-44.9, adult; E78.5 Hyperlipidemia, unspecified
CPT/HCPCS: 24342; 36416; 73070; 76000; 82962; C1713; J0690; J1100; J1170; J2270; J2405; J2704; J3010; J3490; J7030

== ENCOUNTER 2024-06-22 11:20 | Outpatient (CLI) | payer BC, SELFPAY ==
[2024-06-22 12:30] LABS: Anion Gap 15.1 (5-19); Blood Urea Nitrogen 12 mg/dL (8-23); Calcium 8.8 mg/dL (8.5-10.5); Carbon Dioxide 27 mmol/L (22-29); Chloride 102 mmol/L (98-107); Glomerular Filtration Rate 134.8 mL/min (90-130); Glucose 119 mg/dL (65-115); Osmolality Calculated 291 mOsm/kg (285-295); Potassium 4.1 mmol/L (3.5-5.1); Sodium 140 mmol/L (136-145)
== END 2024-06-22 11:21 | disposition home or self-care (01) ==
LOC: LAB 11:23
PROVIDERS: PCP Family Medicine; Visit Provider Family Medicine
DX: Z12.5 Encounter for screening for malignant neoplasm of prostate (principal); R60.0 Localized edema
CPT/HCPCS: 36415; 80048; G0103

== ENCOUNTER 2024-08-03 11:54 | Outpatient (CLI) | payer BC, SELFPAY ==
[2024-08-03 12:58] LABS: Uric Acid 6.5 mg/dL (3.4-7.0)
== END 2024-08-03 11:55 | disposition home or self-care (01) ==
PROVIDERS: PCP Family Medicine; Visit Provider Family Medicine
DX: M10.9 Gout, unspecified (principal)
CPT/HCPCS: 36415; 84550

== ENCOUNTER → 2024-08-07 10:35 | Outpatient (BNVA) | payer BC, SELFPAY | PROVIDERS: PCP Family Medicine | DX: J02.9 Acute pharyngitis, unspecified (principal) | CPT/HCPCS: 87071; 87880 ==

== ENCOUNTER → 2024-11-16 10:19 | Outpatient (BNVA) | payer MEDICARE, OTHER, SELFPAY | PROVIDERS: PCP Family Medicine; Visit Provider Nurse Practitioner Family | DX: L81.4 Other melanin hyperpigmentation (principal); D22.5 Melanocytic nevi of trunk; L85.3 Xerosis cutis; L57.8 Other skin changes due to chronic exposure to nonionizing radiation; L21.8 Other seborrheic dermatitis; Z80.8 Family history of malignant neoplasm of other organs or systems; L82.0 Inflamed seborrheic keratosis; L29.89 Other pruritus; Z78.9 Other specified health status; L53.8 Other specified erythematous conditions; L57.0 Actinic keratosis | CPT/HCPCS: 17000; 17110; 99214 ==

== ENCOUNTER → 2025-05-31 10:21 | Outpatient (BNVA) | payer MEDICARE, OTHER, SELFPAY | PROVIDERS: PCP Family Medicine; Visit Provider Nurse Practitioner Family | DX: L21.8 Other seborrheic dermatitis (principal); L57.8 Other skin changes due to chronic exposure to nonionizing radiation; L81.4 Other melanin hyperpigmentation; D22.39 Melanocytic nevi of other parts of face; L57.0 Actinic keratosis | CPT/HCPCS: 17000; 99214 ==

== ENCOUNTER → 2025-06-29 11:30 | Outpatient (BNVA) | payer MEDICARE, OTHER, SELFPAY | PROVIDERS: PCP Family Medicine; Visit Provider Family Medicine | DX: Z12.5 Encounter for screening for malignant neoplasm of prostate (principal); I10 Essential (primary) hypertension; E78.2 Mixed hyperlipidemia; E78.5 Hyperlipidemia, unspecified; E55.9 Vitamin D deficiency, unspecified; R79.89 Other specified abnormal findings of blood chemistry | CPT/HCPCS: 80053; 80061; 82306; 82607; 84443; 85025; G0103 ==